=== PATIENT | male | born 1960 | race Caucasian/White ===

== ENCOUNTER 2017-07-01 09:47 | Inpatient (IN) | payer SELFPAY ==
[2017-07-01 11:55] LABS: #Lymphocytes 1.1 thou/uL (1.20-3.40); #Monocytes 1.2 thou/uL (0.11-0.59); #Neutrophils 13.9 thou/uL (1.40-6.50); %Basophils 0.1 % (0.0-1.0); %Eosinophils 0.2 % (0.0-10.0); %Lymphocytes 6.6 % (21.0-51.0); %Monocytes 7.1 % (0.0-10.0); %Neutrophils 86.1 % (42.0-75.0); Hemoglobin 15.4 g/dL (14.0-18.0); Mean Corpuscular HGB CONC 33.4 g/dL (32.0-36.0); Mean Platelet Volume 8.4 fL (7.4-10.4); Platelet Count 234 thou/uL (130-400); RBC Distribution Width 12.3 % (11.5-14.5); Red Blood Cell (RBC) Count 5.11 mill/uL (4.70-6.10); White Blood Cell (WBC) Count 16.1 thou/uL (4.8-10.8)
[2017-07-01 12:22] LABS: ALT (SGPT) 19 U/L (8-55); AST (SGOT) 28 U/L (5-34); Albumin 4.7 g/dL (3.5-5.0); Alkaline Phosphatase 61 U/L (40-150); Anion Gap 16 mmol/L (10-20); BUN (Urea Nitrogen) 9 mg/dL (8.4-25.7); Bilirubin, Total 0.8 mg/dL (0.2-1.2); Calc. Creatinine Clearance 0 mL/min (70-130); Calcium 9.9 mg/dL (7.8-10.44); Carbon Dioxide 24 mmol/L (22-29); Chloride 101 mmol/L (98-107); Estimated GFR-MDRD 77; Globulin 3.7 g/dL (2.4-3.5); Glucose 107 mg/dL (70-105); Potassium 4.1 mmol/L (3.5-5.1); Protein, Total 8.4 g/dL (6.0-8.3); Sodium 137 mmol/L (136-145)
[2017-07-01] MEDS ORDERED: ISOVUE-370 76%-LOCM 1 ML ONE (12:47)
[2017-07-01] MEDS ORDERED: Piperacillin/Tazobactam 4.5 GM in Sodium Chloride 0.9% 100 ML IVPB SCH (13:00)
--- NOTE | 2017-07-01 13:36 | CT ---
CT OF THE FACE WITH IV CONTRAST: INDICATION: Left eye swelling, concern for left orbital cellulitis. FINDINGS: There is prominent left facial soft tissue swelling and enhancement consistent with left facial cellu litis. There is prominent soft tissue swelling surrounding the left periorbital region more prominen t within the left lateral superior orbital region. There is a 1 x 1.3 cm peripherally enhancing hypo dense collection within the subcutaneous tissues on image 16 of series 2 and image 66 of the sagittal series consistent with a tiny subcutaneous abscess. No retroorbital inflammatory change is seen inv olving the left orbit. The globes are intact. The lenses are in place. The right orbit is normal-a ppearing. There is dense opacification of the left maxillary sinus. Ethmoid air cells and frontal s inuses are clear. Intracranial contents appear within normal limits. There are mildly prominent lef t parietal lymph nodes which are likely reactive in nature. No acute osseous abnormality is evident. IMPRESSION: 1. Left facial and left periorbital soft tissue cellulitis with a left lateral superior orbital soft tissue subcutaneous abscess measuring up to 1.3 cm. 2. No post septal cellulitis demonstrated involving the left orbit. 3. Prominent opacification of the left maxillary sinus with some wall thickening, likely reflects se quelae of chronic sinusitis. POS: [facility]
--- NOTE | 2017-07-01 15:56 | HP ---
PRIMARY CARE PHYSICIAN: Dr. Yudy Rivas. REASON FOR ADMISSION: Left periorbital cellulitis, failed outpatient therapy. HISTORY OF PRESENT ILLNESS: A 56-year-old male with history of hypertension who noticed swelling of left eyelid, especially left upper eyelid. He was not sure what might have caused, but he thinks facundo t maybe spider bite. Friday and Friday, his eyelid swelling gotten worse and it also gotten worse on Friday and that is why he went to see primary care physician who prescribed antibiotic therapy. [place] brown took antibiotic therapy yesterday and today, but he is not seeing any improvement. He was instruct ed to apply warm compresses, and patient was applying very hot water over left eyelid and that did no t improve his eyelid swelling. This morning, when he woke up, at that time, his eye was completely closed, he was not able to open his left eye. He denies any blurred vision. He denies any diplopia. He denies any fever or chills. He denies any sinus symptoms. He denies any headache. He denies a ny UTI symptoms. He denies any constipation, diarrhea, melena or hematochezia. He denies any trauma . ALLERGIES: No known drug allergies. CURRENT HOME MEDICATIONS: Bactrim-DS 1 tablet twice daily, Prinzide 20/25 one tablet p.o. daily. REVIEW OF SYSTEMS: The following complete review of systems was negative, unless otherwise mentioned in the HPI or below: Constitutional: Weight loss or gain, ability to conduct usual activities. Skin: Rash, itching. Eyes: Double vision, pain. ENT/Mouth: Nose bleeding, neck stiffness, pain, tenderness. Cardiovascular: Palpitations, dyspnea on exertion, orthopnea. Respiratory: Shortness of breath, wheezing, cough, hemoptysis, fever or night sweats. Gastrointestinal: Poor appetite, abdominal pain, heartburn, nausea, vomiting, constipation, or diarr hea. Genitourinary: Urgency, frequency, dysuria, nocturia. Musculoskeletal: Pain, swelling. Neurologic/Psychiatric: Anxiety, depression. Allergy/Immunologic: Skin rash, bleeding tendency. Please see my HPI for pertinent positives and negatives. All other review of systems reviewed and ne gative except as mentioned in the HPI. PAST MEDICAL HISTORY: Hypertension. PAST SURGICAL HISTORY: Back surgery, tonsillectomy. PAST PSYCHIATRIC HISTORY: Reviewed and negative. SOCIAL HISTORY: Patient is . He drinks alcohol socially. He chews tobacco. He denies any o ther illicit drug abuse. FAMILY HISTORY: No strong family history of premature coronary artery disease, stroke or cancer. EMERGENCY ROOM COURSE: Patient has received Zosyn, vancomycin, and IV fluids. PHYSICAL EXAMINATION: VITAL SIGNS: On arrival, blood pressure 154/79, pulse 80, respiratory rate 18, temperature 98.1, sat uration 96% on room air, weight 95.3 kilograms. GENERAL: Patient is currently alert, oriented, no acute distress, nontoxic. HEENT: Head: Normocephalic, atraumatic. Eyes: Left upper eyelid is red, swollen, edematous and te nder. Periorbital edema as well as surrounding facial erythema noted. Left upper orbit and eyelid i s warm and tender with mild induration. No nystagmus. ENT: Oropharynx within normal limits. Moist mucous membranes. No oral lesions. No pharyngeal eryt merna, no exudates. NECK: Supple, no JVD, no thyromegaly, no carotid bruit, no jugular venous distention. LUNGS: Clear to auscultation without any rhonchi or rales. CARDIAC: S1, S2 regular without any murmur. ABDOMEN: Soft, bowel sounds present, nontender, nondistended. No organomegaly, no mass, no suprapub ic tenderness. BACK: Unremarkable, no CVA tenderness. EXTREMITIES: Upper extremity, passive movement of all joints are normal. Lower extremity, no edema. Good peripheral pulsation. SKIN: No skin rash other than periorbital cellulitis. PSYCHIATRIC: Normal affect. SIGNIFICANT LABORATORY DATA AND IMAGIN. CT of facial bones showing left facial and left periorbital soft tissue cellulitis with left late ral superior orbital soft tissue subcutaneous abscess measuring up to 1.3 cm. No post-septal celluli tis demonstrated in the left orbit. Prominent opacification of left maxillary sinus with some wall t hickening reflects chronic sinusitis. 2. CBC: WBC 16.1, hemoglobin 15.4, platelet 234. BMP shows sodium 137, potassium 4.1, chloride 101 , carbon dioxide 24, anion gap 16, BUN 9, creatinine 1.01, glucose 107, calcium 9.9. Lactic acid 1.5 . 3. LFT: AST 28, ALT 19, alkaline phosphatase 61, albumin 4.7. ASSESSMENT AND PLAN: 1. Left facial and left periorbital soft tissue cellulitis with left lateral superior orbital soft t issue subcutaneous abscess, failed outpatient therapy. Patient will be treated with vancomycin and Z osyn. Pharmacy will adjust dose of vancomycin. Probiotics, Florastor 250 mg p.o. daily, pain contro l with morphine 2 mg q.4 hours p.r.n., warm compresses application advised. We will consult ophthalm ology for need of I&D for left lateral superior orbital soft tissue subcutaneous abscess. 2. Left maxillary sinus opacification consistent with chronic sinusitis. The patient will be kept o n IV antibiotic therapy that should help with chronic sinusitis. Though the patient does not have an y signs or symptoms, I advised him to follow up with ENT doctor after discharge. 3. Hypertension. If blood pressure permits, then we will continue with lisinopril with hydrochlorot hiazide 20/25 one tablet p.o. daily. 4. Leukocytosis, likely related with underlying cellulitis. 5. Deep venous thrombosis prophylaxis, Lovenox 40 mg subcu daily. 6. Gastrointestinal prophylaxis, Pepcid 20 mg p.o. b.i.d. 7. Code status: The patient is FULL CODE. The patient's is surrogate decision maker. Disposition and plan based on clinical course. We are expecting patient's stay in hospital more than 2 midnights. Plan of care discussed with the patient and family member at bedside in the emergency room.
[2017-07-01] MEDS ORDERED: Mag-Al 1200 mg/1200 mg/30 ML UDCUP PO PRN (16:38)
[2017-07-01] MEDS ORDERED: Diabetic Tussin 200 MG/10 ML UDCUP PO PRN (16:38)
[2017-07-01] MEDS ORDERED: Loratadine 10 MG TAB PO PRN (16:38)
[2017-07-01] MEDS ORDERED: Milk Of Magnesia 30 ML UDCUP PO PRN (16:38)
[2017-07-01] MEDS ORDERED: hydrALAZINE 20 MG/ML VIAL SLOW IVP PRN (16:38)
[2017-07-01] MEDS ORDERED: Ondansetron ODT 4 MG TAB PO PRN (16:38)
[2017-07-01] MEDS ORDERED: Eucerin (Mineral Oil/Petrolatum,White) 30 gm Jar TOP PRN (16:38)
[2017-07-01] MEDS ORDERED: Senokot 8.6 MG TAB PO PRN (16:38)
[2017-07-01] MEDS ORDERED: Chloraseptic Spray 180 ml Bottle PO PRN (16:38)
[2017-07-01] MEDS ORDERED: Acetaminophen 325 MG TAB PO PRN (16:38)
[2017-07-01] MEDS ORDERED: Sodium Chloride 0.65% Nasal 44 ML BOT EA NARE PRN (16:38)
[2017-07-01] MEDS ORDERED: Artificial Tears 18 DROP/0.9 ML EA EYE PRN (16:38)
[2017-07-01] MEDS ORDERED: Ondansetron HCl/PF 4 MG/2 ML Vial IVP PRN (16:38)
[2017-07-01] MEDS ORDERED: Loperamide HCl 2 MG CAP PO PRN (16:38)
[2017-07-01] MEDS ORDERED: Zolpidem Tartrate 5 MG TAB PO PRN (16:38)
[2017-07-01] MEDS ORDERED: Morphine 5 MG/ML SYRINGE SLOW IVP PRN (17:08)
[2017-07-01 17:30] VITALS: BMI 27.6
[2017-07-01] MEDS: HYDROcodone/Acetaminophen 5/325 mg Tablet PO PRN (17:39)
[2017-07-01] MEDS: Famotidine 20 MG TAB PO SCH (20:24)
[2017-07-01] MEDS: Piperacillin/Tazobactam 4.5 GM in Sodium Chloride 0.9% 100 ML IVPB SCH (20:24)
[2017-07-02] MEDS: Vancomycin HCl 1.5 GM in Sodium Chloride 0.9% 250 ML 300 ML IVPB SCH ×2 (00:27→12:09)
[2017-07-02] MEDS: HYDROcodone/Acetaminophen 5/325 mg Tablet PO PRN (00:31)
[2017-07-02] MEDS: Piperacillin/Tazobactam 4.5 GM in Sodium Chloride 0.9% 100 ML IVPB SCH ×4 (02:09→20:29)
[2017-07-02 05:52] LABS: #Eosinphils 0.2 thou/uL (0.0-0.7); #Lymphocytes 1.7 thou/uL (1.20-3.40); #Monocytes 1.2 thou/uL (0.11-0.59); #Neutrophils 8.4 thou/uL (1.40-6.50); %Basophils 0.3 % (0.0-1.0); %Eosinophils 1.7 % (0.0-10.0); %Lymphocytes 14.7 % (21.0-51.0); %Monocytes 10.5 % (0.0-10.0); %Neutrophils 72.8 % (42.0-75.0); Hemoglobin 13.5 g/dL (14.0-18.0); Mean Corpuscular HGB CONC 33.9 g/dL (32.0-36.0); Mean Corpuscular Hemoglobin 30.3 pg (27.0-31.0); Mean Corpuscular Volume 89.3 fl (80.0-94.0); Mean Platelet Volume 7.5 fL (7.4-10.4); Platelet Count 190 thou/uL (130-400); RBC Distribution Width 12.2 % (11.5-14.5); Red Blood Cell (RBC) Count 4.46 mill/uL (4.70-6.10); White Blood Cell (WBC) Count 11.5 thou/uL (4.8-10.8)
[2017-07-02 06:14] LABS: Anion Gap 11 mmol/L (10-20); BUN (Urea Nitrogen) 10 mg/dL (8.4-25.7); Calc. Creatinine Clearance 120 mL/min (70-130); Calcium 8.9 mg/dL (7.8-10.44); Carbon Dioxide 27 mmol/L (22-29); Chloride 103 mmol/L (98-107); Estimated GFR-MDRD 84; Glucose 109 mg/dL (70-105); Potassium 4.1 mmol/L (3.5-5.1); Sodium 137 mmol/L (136-145)
[2017-07-02] MEDS: Famotidine 20 MG TAB PO SCH ×2 (08:50→20:28)
[2017-07-02] MEDS: Saccharomyces boulardii 250 MG CAP PO SCH (08:51)
[2017-07-02] MEDS: Lisinopril/Hydrochlorothiazide 20/25 mg Tablet PO SCH (08:52)
[2017-07-02] MEDS: Enoxaparin Sodium 40 MG/0.4 ML SYRINGE SC SCH (08:52)
--- NOTE | 2017-07-02 10:11 | PDOC.PN ---
- Subjective Encounter Start Date: 07/02/17 Encounter Start Time: 08:10 Patient seen and examined. No new complaints. No overnight events - Objective Resuscitation Status: Resuscitation Status FULL:Full Resuscitation MAR Reviewed: Yes Vital Signs & Weight: Vital Signs (12 hours) Pulse Resp BP 07/02/17 08:52 80 127/72 07/02/17 04:20 16 Weight Weight 209 lb I&O: 07/01/17 07/02/17 07/03/17 06:59 06:59 06:59 Intake Total 240 Balance 240 Result Diagrams: 07/02/17 05:25 07/02/17 05:25 Phys Exam - Physical Examination Constitutional: NAD HEENT: PERRLA, moist MMs, sclera anicteric left upper eyelid swelling, erythema, tenderness and warmth Neck: no JVD, supple Respiratory: no wheezing, no rales, no rhonchi Cardiovascular: RRR, no significant murmur, no rub Gastrointestinal: soft, non-tender, no distention, positive bowel sounds Musculoskeletal: no edema, pulses present Neurological: non-focal, normal sensation, moves all 4 limbs Psychiatric: normal affect, A&O x 3 Skin: no rash, normal turgor Dx/Plan (1) Abscess of left upper eyelid Code(s): H00.034 - ABSCESS OF LEFT UPPER EYELID Status: Acute (2) Leucocytosis Code(s): D72.829 - ELEVATED WHITE BLOOD CELL COUNT, UNSPECIFIED Status: Acute (3) Periorbital cellulitis of left eye Code(s): L03.213 - PERIORBITAL CELLULITIS Status: Acute (4) Hypertension Code(s): I10 - ESSENTIAL (PRIMARY) HYPERTENSION Status: Chronic - Plan cont current plan of care, plan discussed w/ family, continue antibiotics * continue vancomycin and zosyn * opthalmology to decide if I & D needed for abscess * medication reviewed as below * symptomatic treatment * pain control * discussed with . Review of Systems - Review of Systems Constitutional: negative: fever, chills, sweats, weakness, malaise, other Eyes: Eyelid Inflammation. negative: Pain, Vision Change, Conjunctivae Inflammation, Redness, Other ENT: negative: Ear Pain, Ear Discharge, Nose Pain, Nose Discharge, Nose Congestion, Mouth Pain, Mouth Swelling, Throat Pain, Throat Swelling, Other Respiratory: negative: Cough, Dry, Shortness of Breath, Hemoptysis, SOB with Excertion, Pleuritic Pain, Sputum, Wheezing Cardiovascular: negative: chest pain, palpitations, orthopnea, paroxysmal nocturnal dyspnea, edema, light headedness, other Gastrointestinal: negative: Nausea, Vomiting, Abdominal Pain, Diarrhea, Constipation, Melena, Hematochezia, Other Genitourinary: negative: Dysuria, Frequency, Incontinence, Hematuria, Retention , Other Musculoskeletal: negative: Neck Pain, Shoulder Pain, Arm Pain, Back Pain, Hand Pain, Leg Pain, Foot Pain, Other Skin: negative: Rash, Lesions, Jaret, Bruising, Other - Medications/Allergies Allergies/Adverse Reactions: Allergies Allergy/AdvReac Type Severity Reaction Status Date / Time No Known Allergies Allergy Unverified 07/01/17 12:56 Medications: Current Medications Acetaminophen (Tylenol) 650 mg PO Q4H PRN PRN Reason: Headache/Fever or Pain Hydrocodone Bitart/Acetaminophen ([place] 5/325) 1 tab PO Q4H PRN PRN Reason: Moderate Pain (4-6) Last Admin: 07/02/17 00:31 Dose: 1 tab Al Hydroxide/Mg Hydroxide (Maalox) 30 ml PO Q6H PRN PRN Reason: Heartburn or Indigestion Artificial Tears (Tears Naturale) 0 drop EA EYE PRN PRN PRN Reason: Dry Eyes Enoxaparin Sodium (Lovenox) 40 mg SC 0900 [facility] Last Admin: 07/02/17 08:52 Dose: Not Given Famotidine (Pepcid) 20 mg PO BID [facility] Last Admin: 07/02/17 08:50 Dose: 20 mg Guaifenesin (Robitussin Sf) 200 mg PO Q4H PRN PRN Reason: Cough Lisinopril/HCTZ (Prinizide 20-25) 1 tab PO DAILY [facility] Last Admin: 07/02/17 08:52 Dose: 1 tab Hydralazine HCl (Apresoline) 10 mg SLOW IVP Q4H PRN PRN Reason: Systolic BP > 180 Piperacillin Sod/Tazobactam (Sod 4.5 gm/ Sodium Chloride) 100 mls @ 200 mls/hr IVPB 0200,0800,1400,2000 [facility] Last Admin: 07/02/17 08:50 Dose: 100 mls Vancomycin HCl 1.5 gm/ Sodium (Chloride) 300 mls @ 200 mls/hr IVPB 1200,2359 [facility] Last Admin: 07/02/17 00:27 Dose: 300 mls Loperamide HCl (Imodium) 2 mg PO PRN PRN PRN Reason: Diarrhea/Loose Stools Loratadine (Claritin) 10 mg PO DAILYPRN PRN PRN Reason: Sinus Symptoms Magnesium Hydroxide (Milk Of Magnesium) 30 ml PO DAILYPRN PRN PRN Reason: Constipation Mineral Oil/White Petrolatum (Eucerin Cream) 0 gm TOP BIDPRN PRN PRN Reason: Dry Skin Miscellaneous Medication (Pharmacy To Dose) 1 each IVPB ONE PRN PRN Reason: Pharmacy to dose Stop: 07/31/17 16:39 Morphine Sulfate (Morphine) 2 mg SLOW IVP Q4H PRN PRN Reason: Pain Ondansetron HCl (Zofran Odt) 4 mg PO Q6H PRN PRN Reason: Nausea/Vomiting Ondansetron HCl (Zofran) 4 mg IVP Q6H PRN PRN Reason: Nausea/Vomiting Phenol (Chloraseptic [place] 180 Ml Bot) 0 ml PO PRN PRN PRN Reason: Sore Throat Saccharomyces Boulardii (Florastor) 250 mg PO DAILY [facility] Last Admin: 07/02/17 08:51 Dose: 250 mg Senna (Senokot) 2 tab PO HSPRN PRN PRN Reason: Constipation Sodium Chloride ([place] Nasal [place] 0.65%) 0 ml EA NARE QIDPRN PRN PRN Reason: Nasal Congestion Sodium Chloride (Flush - Normal Saline) 10 ml IVF Q12HR [facility] Last Admin: 07/02/17 08:43 Dose: Not Given Sodium Chloride (Flush - Normal Saline) 10 ml IVF PRN PRN PRN Reason: Saline Flush Zolpidem Tartrate (Ambien) 5 mg PO HSPRN PRN PRN Reason: Insomnia
[2017-07-02 23:13] LABS: Vancomycin, Trough 9.9 ug/mL
[2017-07-03] MEDS: Vancomycin HCl 1.5 GM in Sodium Chloride 0.9% 250 ML 300 ML IVPB SCH ×3 (00:20→15:45)
[2017-07-03] MEDS: Piperacillin/Tazobactam 4.5 GM in Sodium Chloride 0.9% 100 ML IVPB SCH ×4 (02:17→20:22)
[2017-07-03 08:01] LABS: #Eosinphils 0.2 thou/uL (0.0-0.7); #Lymphocytes 1.1 thou/uL (1.20-3.40); #Monocytes 0.8 thou/uL (0.11-0.59); #Neutrophils 5.7 thou/uL (1.40-6.50); %Basophils 0.2 % (0.0-1.0); %Eosinophils 2.3 % (0.0-10.0); %Lymphocytes 14.3 % (21.0-51.0); %Monocytes 9.9 % (0.0-10.0); %Neutrophils 73.4 % (42.0-75.0); Hemoglobin 13.9 g/dL (14.0-18.0); Mean Corpuscular HGB CONC 32.7 g/dL (32.0-36.0); Mean Corpuscular Hemoglobin 29.9 pg (27.0-31.0); Mean Corpuscular Volume 91.5 fl (80.0-94.0); Mean Platelet Volume 7.6 fL (7.4-10.4); Platelet Count 208 thou/uL (130-400); Red Blood Cell (RBC) Count 4.66 mill/uL (4.70-6.10); White Blood Cell (WBC) Count 7.8 thou/uL (4.8-10.8)
[2017-07-03] MEDS: Enoxaparin Sodium 40 MG/0.4 ML SYRINGE SC SCH (08:07)
[2017-07-03] MEDS: Saccharomyces boulardii 250 MG CAP PO SCH (08:11)
[2017-07-03] MEDS: Famotidine 20 MG TAB PO SCH ×2 (08:11→20:22)
[2017-07-03] MEDS: Lisinopril/Hydrochlorothiazide 20/25 mg Tablet PO SCH (08:11)
[2017-07-03 08:15] LABS: Anion Gap 11 mmol/L (10-20); BUN (Urea Nitrogen) 8 mg/dL (8.4-25.7); CRP (Inflammatory) 5.35 mg/dL (= or < 0.5); Calc. Creatinine Clearance 132 mL/min (70-130); Calcium 9.4 mg/dL (7.8-10.44); Carbon Dioxide 28 mmol/L (22-29); Chloride 102 mmol/L (98-107); Estimated GFR-MDRD Greater than 90; Glucose 115 mg/dL (70-105); Potassium 3.5 mmol/L (3.5-5.1); Sodium 137 mmol/L (136-145)
--- NOTE | 2017-07-03 09:35 | PDOC.PN ---
- Subjective Encounter Start Date: 07/03/17 Encounter Start Time: 07:40 Patient seen and examined. No new complaints. No overnight events - Objective Resuscitation Status: Resuscitation Status FULL:Full Resuscitation MAR Reviewed: Yes Vital Signs & Weight: Vital Signs (12 hours) Temp Pulse Resp BP 07/03/17 07:38 97.7 F 70 20 140/76 07/03/17 00:18 97.8 F 68 16 116/73 Weight Weight 209 lb I&O: 07/02/17 07/03/17 07/04/17 06:59 06:59 06:59 Intake Total 240 590 Balance 240 590 Result Diagrams: 07/03/17 07:29 07/03/17 07:29 Phys Exam - Physical Examination Constitutional: NAD HEENT: PERRLA, moist MMs, sclera anicteric upper eyelid on left side cellulitis, edema, warmth, tender, Neck: no JVD, supple Respiratory: no wheezing, no rales, no rhonchi Cardiovascular: RRR, no significant murmur, no rub Gastrointestinal: soft, non-tender, no distention, positive bowel sounds Musculoskeletal: no edema, pulses present Neurological: non-focal, normal sensation, moves all 4 limbs Psychiatric: normal affect, A&O x 3 Skin: no rash, normal turgor Dx/Plan (1) Abscess of left upper eyelid Code(s): H00.034 - ABSCESS OF LEFT UPPER EYELID Status: Acute (2) Leucocytosis Code(s): D72.829 - ELEVATED WHITE BLOOD CELL COUNT, UNSPECIFIED Status: Acute (3) Periorbital cellulitis of left eye Code(s): L03.213 - PERIORBITAL CELLULITIS Status: Acute (4) Hypertension Code(s): I10 - ESSENTIAL (PRIMARY) HYPERTENSION Status: Chronic - Plan cont current plan of care, plan discussed w/ family, continue antibiotics * continue iv vancomycin and zosyn * now abscess is spontaneously draining * will benefit from iv antibiotics today * medication reviewed as below * symptomatic treatment. * consider augmentin and doxy on discharge Review of Systems - Review of Systems Constitutional: negative: fever, chills, sweats, weakness, malaise, other Eyes: Eyelid Inflammation. negative: Pain, Vision Change, Conjunctivae Inflammation, Redness, Other ENT: negative: Ear Pain, Ear Discharge, Nose Pain, Nose Discharge, Nose Congestion, Mouth Pain, Mouth Swelling, Throat Pain, Throat Swelling, Other Respiratory: negative: Cough, Dry, Shortness of Breath, Hemoptysis, SOB with Excertion, Pleuritic Pain, Sputum, Wheezing Cardiovascular: negative: chest pain, palpitations, orthopnea, paroxysmal nocturnal dyspnea, edema, light headedness, other Gastrointestinal: negative: Nausea, Vomiting, Abdominal Pain, Diarrhea, Constipation, Melena, Hematochezia, Other Genitourinary: negative: Dysuria, Frequency, Incontinence, Hematuria, Retention , Other Musculoskeletal: negative: Neck Pain, Shoulder Pain, Arm Pain, Back Pain, Hand Pain, Leg Pain, Foot Pain, Other Skin: negative: Rash, Lesions, Jaret, Bruising, Other - Medications/Allergies Allergies/Adverse Reactions: Allergies Allergy/AdvReac Type Severity Reaction Status Date / Time No Known Allergies Allergy Unverified 07/01/17 12:56 Medications: Current Medications Acetaminophen (Tylenol) 650 mg PO Q4H PRN PRN Reason: Headache/Fever or Pain Last Admin: 07/02/17 12:09 Dose: 650 mg Hydrocodone Bitart/Acetaminophen ([place] 5/325) 1 tab PO Q4H PRN PRN Reason: Moderate Pain (4-6) Last Admin: 07/02/17 00:31 Dose: 1 tab Al Hydroxide/Mg Hydroxide (Maalox) 30 ml PO Q6H PRN PRN Reason: Heartburn or Indigestion Artificial Tears (Tears Naturale) 0 drop EA EYE PRN PRN PRN Reason: Dry Eyes Enoxaparin Sodium (Lovenox) 40 mg SC 0900 [facility] Last Admin: 07/03/17 08:07 Dose: Not Given Famotidine (Pepcid) 20 mg PO BID [facility] Last Admin: 07/03/17 08:11 Dose: 20 mg Guaifenesin (Robitussin Sf) 200 mg PO Q4H PRN PRN Reason: Cough Lisinopril/HCTZ (Prinizide 20-25) 1 tab PO DAILY [facility] Last Admin: 07/03/17 08:11 Dose: 1 tab Hydralazine HCl (Apresoline) 10 mg SLOW IVP Q4H PRN PRN Reason: Systolic BP > 180 Piperacillin Sod/Tazobactam (Sod 4.5 gm/ Sodium Chloride) 100 mls @ 200 mls/hr IVPB 0200,0800,1400,2000 [facility] Last Admin: 07/03/17 08:05 Dose: 100 mls Vancomycin HCl 1.5 gm/ Sodium (Chloride) 300 mls @ 200 mls/hr IVPB 0800,1600, 2359 [facility] Last Admin: 07/03/17 08:12 Dose: 300 mls Loperamide HCl (Imodium) 2 mg PO PRN PRN PRN Reason: Diarrhea/Loose Stools Loratadine (Claritin) 10 mg PO DAILYPRN PRN PRN Reason: Sinus Symptoms Magnesium Hydroxide (Milk Of Magnesium) 30 ml PO DAILYPRN PRN PRN Reason: Constipation Mineral Oil/White Petrolatum (Eucerin Cream) 0 gm TOP BIDPRN PRN PRN Reason: Dry Skin Miscellaneous Medication (Pharmacy To Dose) 1 each IVPB ONE PRN PRN Reason: Pharmacy to dose Stop: 07/31/17 16:39 Morphine Sulfate (Morphine) 2 mg SLOW IVP Q4H PRN PRN Reason: Pain Ondansetron HCl (Zofran Odt) 4 mg PO Q6H PRN PRN Reason: Nausea/Vomiting Ondansetron HCl (Zofran) 4 mg IVP Q6H PRN PRN Reason: Nausea/Vomiting Phenol (Chloraseptic [place] 180 Ml Bot) 0 ml PO PRN PRN PRN Reason: Sore Throat Saccharomyces Boulardii (Florastor) 250 mg PO DAILY [facility] Last Admin: 07/03/17 08:11 Dose: 250 mg Senna (Senokot) 2 tab PO HSPRN PRN PRN Reason: Constipation Sodium Chloride ([place] Nasal [place] 0.65%) 0 ml EA NARE QIDPRN PRN PRN Reason: Nasal Congestion Sodium Chloride (Flush - Normal Saline) 10 ml IVF Q12HR [facility] Last Admin: 07/02/17 20:29 Dose: 10 ml Sodium Chloride (Flush - Normal Saline) 10 ml IVF PRN PRN PRN Reason: Saline Flush Last Admin: 07/03/17 00:20 Dose: 10 ml Zolpidem Tartrate (Ambien) 5 mg PO HSPRN PRN PRN Reason: Insomnia
[2017-07-03 23:14] LABS: Vancomycin, Trough 21.7 ug/mL
[2017-07-04] MEDS: Vancomycin HCl 1.25 GM in Sodium Chloride 0.9% 250 ML 250 ML IVPB SCH ×2 (00:21→08:17)
[2017-07-04] MEDS: Piperacillin/Tazobactam 4.5 GM in Sodium Chloride 0.9% 100 ML IVPB SCH ×2 (02:22→07:22)
[2017-07-04] MEDS: Enoxaparin Sodium 40 MG/0.4 ML SYRINGE SC SCH (07:22)
[2017-07-04 07:24] VITALS: BP 130/75; TEMP 98.1
[2017-07-04] MEDS: Famotidine 20 MG TAB PO SCH (08:17)
[2017-07-04] MEDS: Lisinopril/Hydrochlorothiazide 20/25 mg Tablet PO SCH (08:18)
[2017-07-04] MEDS: Saccharomyces boulardii 250 MG CAP PO SCH (08:18)
--- NOTE | 2017-07-05 16:35 | DIS ---
DATE OF DISCHARGE: 07/04/2017 DISCHARGE DISPOSITION: Home. FOLLOWUP: 1. Follow up with primary care physician, Dr. Yudy Rivas in 1 week. 2. Follow up with Ophthalmology, Dr. Chevy Dixon as scheduled. ALLERGIES: No known drug allergies. The patient was seen on the day of discharge. Denies any new complaints. Left eyelid swelling has s ignificantly improved. DISCHARGE MEDICATIONS: Augmentin 875 mg 1 tablet b.i.d. for 1 week, doxycycline 100 mg b.i.d. for 1 week, lisinopril/HCTZ 20/25 daily, ibuprofen and Tylenol as needed. INPATIENT CONSULTANTS: Ophthalmology, Dr. Dixon. BRIEF HOSPITAL COURSE: The patient is a 56-year-old male with hypertension, who presented to the [facility] room with swelling around his left eye. Please refer to the history and physical dated 2017 for further details. The patient was admitted to the hospital with a diagnosis of left periorbital cellulitis. He was armand león on broad-spectrum antibiotic (vancomycin and Zosyn). He was seen by Ophthalmology, Dr. Dixon. Facial bone CT on admission showed left facial and left periorbital soft tissue cellulitis. He show ed good improvement with antibiotics. Antibiotics will be changed to oral. The patient has been emily ared for discharge by Ophthalmology. FINAL DIAGNOSES: 1. Left facial/left periorbital cellulitis. 2. Chronic sinusitis. 3. Hypertension. 4. Leukocytosis secondary to #1. His WBC on admission was 16.1. Two days later was 7.8. 5. Elevated inflammatory markers. His CRP was 5.35. SIGNIFICANT LABORATORY DATA: Blood cultures were negative. Creatinine 0.85. Plan of care was discussed with the patient. He stated understanding.
== END 2017-07-04 08:43 | disposition home or self-care (01) | DRG 603 ==
LOC: ERS 09:47 → 3SE 15:05
PROVIDERS: ADMIT Internal Medicine; ATTEND Internal Medicine
PROC: 089 Eye, Drainage (ICD-10-PCS; principal; 2017-07-02)
DX: L03.213 Periorbital cellulitis (principal); F17.220 Nicotine dependence, chewing tobacco, uncomplicated; H00.034 Abscess of left upper eyelid; L03.211 Cellulitis of face; I10 Essential (primary) hypertension; J32.9 Chronic sinusitis, unspecified; Z79.899 Other long term (current) drug therapy
CPT/HCPCS: 36415; 70487; 80048; 80053; 80202; 83605; 85025; 86140; 87040; 96365; 96367; A4216; J1650; J2543; J3370; J7050